=== PATIENT | male | born 1995 | race Caucasian/White ===

== ENCOUNTER 2016-12-13 06:55 | Emergency (ER) | payer OTHER ==
[2016-12-13 07:03] VITALS: BP 136/88
== END 2016-12-13 08:15 | disposition home or self-care (01) ==
LOC: ED 06:55
DX: K08.89 Other specified disorders of teeth and supporting structures (principal)

== ENCOUNTER 2018-12-12 08:36 | Emergency (ER) | payer SELFPAY ==
[~2018-12-12] VITALS: Ht 170.2 cm; Wt 67.6 kg
[2018-12-12 08:40] VITALS: Ht 170.2 cm; Wt 67.6 kg
[2018-12-12 09:15] VITALS: BP 127/83
== END 2018-12-12 09:15 | disposition home or self-care (01) ==
LOC: ED 08:36
DX: L03.811 Cellulitis of head [any part, except face] (principal)

== ENCOUNTER 2020-03-13 13:13 | Emergency (ER) | payer OTHER ==
[~2020-03-13] VITALS: Ht 170.2 cm; Wt 69.4 kg
[2020-03-13 13:53] VITALS: Ht 170.2 cm; Wt 69.4 kg
[2020-03-13 16:59] VITALS: BP 116/74
== END 2020-03-13 16:59 | disposition home or self-care (01) ==
LOC: ED 13:13
DX: R51.9 Headache, unspecified (principal); M54.2 Cervicalgia